=== PATIENT | female | born 1975 | race Caucasian/White ===

== ENCOUNTER → 2016-03-16 | Outpatient (REF) | payer OTHER ==
[~2016-03-16] MED LIST: MOTR200T40 PO; PREN27TA3 PO; TYLE325T5 PO; ZANTTAB9 PO
== END ==
LOC: M LAB REF 17:01
PROVIDERS: ATTEND Obstetrics & Gynecology
DX: Z12.4 Encounter for screening for malignant neoplasm of cervix (principal)

== ENCOUNTER → 2016-10-11 | Outpatient (REF) | payer OTHER ==
[~2016-10-11] MED LIST changes: +CALC600T57 PO; +FAMO20TA PO; +LEVE100SOL; +MACR100C43 PO; -MOTR200T40 PO; +MOTR200T44 PO; +POTA10CA PO; +VITA-193 PO; +VITA500055 PO
[2016-10-11 17:53] LABS: MEAN CORPUSCULAR HEMOGLOBIN 30.7 pg (27.0-33.0); MEAN CORPUSCULAR HGB CONC 33.4 g/dl (32.0-36.5); RED CELL DISTRIBUTION WIDTH 13.3 % (11.5-14.5); WHITE BLOOD COUNT 5.2 K/mm3 (4.0-10.0)
[2016-10-11 19:45] LABS: ALBUMIN 3.3 GM/DL (3.2-5.2); ALBUMIN/GLOBULIN RATIO 1.14 (1.00-1.93); ALKALINE PHOSPHATASE 62 U/L (45-117); ALT/SGPT 24 U/L (12-78); ANION GAP 11 MEQ/L (8-16); AST/SGOT 21 U/L (15-37); BILIRUBIN,TOTAL 1.1 MG/DL (0.2-1.0); BLOOD UREA NITROGEN 7 MG/DL (7-18); CARBON DIOXIDE LEVEL 26 MEQ/L (21-32); CHLORIDE LEVEL 108 MEQ/L (98-107); CREATININE FOR GFR 0.97 MG/DL (0.55-1.02); GLOMERULAR FILTRATION RATE > 60.0 (>58); GLUCOSE, FASTING 69 MG/DL (70-105); POTASSIUM SERUM 3.5 MEQ/L (3.5-5.1); SODIUM LEVEL 145 MEQ/L (136-145); TOTAL PROTEIN 6.2 GM/DL (6.4-8.2)
== END ==
LOC: M SFHCLERA 14:27
PROVIDERS: ATTEND Family Medicine
DX: R56.9 Unspecified convulsions (principal); Z13.1 Encounter for screening for diabetes mellitus

== ENCOUNTER 2016-10-17 17:24 | Emergency (ER) | payer OTHER ==
[~2016-10-17] VITALS: Ht 162.6 cm; Wt 84.1 kg
[~2016-10-17 17:24] MED LIST changes: -CALC600T57 PO; -FAMO20TA PO; -LEVE100SOL; -MACR100C43 PO; -POTA10CA PO; -VITA-193 PO; -VITA500055 PO
[2016-10-17] MEDS ORDERED: FAMO20TA PO (17:36)
[2016-10-17] MEDS ORDERED: LEVE100SOL (17:36)
[2016-10-17] MEDS ORDERED: VITA500055 PO (17:36)
[2016-10-17] MEDS ORDERED: VITA-193 PO (17:36)
[2016-10-17] MEDS ORDERED: CALC600T57 PO (17:36)
[2016-10-17] MEDS ORDERED: POTA10CA PO (17:36)
[2016-10-17] MEDS ORDERED: ACETAMINOPHEN 325 MG TAB PO ONE (18:45)
[2016-10-17] MEDS ORDERED: NS 1,000 ML IV ONE (18:45)
[2016-10-17 19:13] LABS: BASO % 0.3 % (0.0-1.0); EOS # 0.1 K/mm3 (0.0-0.50); EOS % 0.9 % (0.0-3.0); LARGE UNSTAINED CELL # 0.1 K/mm3 (0.0-0.4); LARGE UNSTAINED CELL % 1.3 % (0.0-4.0); LYMPH # 1.3 K/mm3 (1.5-4.5); LYMPH % 16.1 % (24.0-44.0); MEAN CORPUSCULAR HGB CONC 35.1 g/dl (32.0-36.5); MEAN CORPUSCULAR VOLUME 88.6 fl (80.0-96.0); MONO # 0.6 K/mm3 (0.0-0.8); MONO % 7.6 % (0.0-5.0); NEUTROPHILS # 5.4 K/mm3 (1.8-7.7); NEUTROPHILS % 73.8 % (36.0-66.0); PLATELET COUNT, AUTOMATED 162 k/mm3 (150-450); RED CELL DISTRIBUTION WIDTH 13.2 % (11.5-14.5); WHITE BLOOD COUNT 7.4 K/mm3 (4.0-10.0)
[2016-10-17 19:27] LABS: BLOOD UREA NITROGEN 8 MG/DL (7-18); CALCIUM LEVEL 8.7 MG/DL (8.5-10.1); CARBON DIOXIDE LEVEL 28 MEQ/L (21-32); CHLORIDE LEVEL 101 MEQ/L (98-107); GLOMERULAR FILTRATION RATE > 60.0 (>58); GLUCOSE, FASTING 85 MG/DL (70-105)
[2016-10-17 19:34] LABS: ANION GAP 7 MEQ/L (8-16); SODIUM LEVEL 136 MEQ/L (136-145)
[2016-10-17 19:50] LABS: POTASSIUM SERUM 2.9 MEQ/L (3.5-5.1)
[2016-10-17] MEDS ORDERED: POTASSIUM CHLORIDE 10 MEQ SR TABLET PO ONE (20:00)
[2016-10-17] MEDS ORDERED: KCL 10MEQ IN 100ML SWI (KRUN) 10 MEQ in APPROPRIATE DILUENT 1 EA IV ONE ×2 (20:00)
[2016-10-17 23:04] LABS: ANION GAP 9 MEQ/L (8-16); BLOOD UREA NITROGEN 7 MG/DL (7-18); CALCIUM LEVEL 6.6 MG/DL (8.5-10.1); CARBON DIOXIDE LEVEL 25 MEQ/L (21-32); CHLORIDE LEVEL 108 MEQ/L (98-107); CREATININE FOR GFR 0.81 MG/DL (0.55-1.02); GLOMERULAR FILTRATION RATE > 60.0 (>58); GLUCOSE, FASTING 80 MG/DL (70-105); POTASSIUM SERUM 3.4 MEQ/L (3.5-5.1); SODIUM LEVEL 142 MEQ/L (136-145)
[2016-10-17] MEDS ORDERED: NITROFURANTOIN (MACROBID) 100 MG CAP PO ONE (23:30)
[2016-10-17 23:32] VITALS: BP 114/65
[2016-10-17] MEDS ORDERED: MACR100C43 PO (23:35)
== END 2016-10-17 23:41 | disposition home or self-care (01) ==
LOC: M ED 17:24
DX: E87.6 Hypokalemia (principal); R51 Headache; M79.1 Myalgia; N39.0 Urinary tract infection, site not specified; E11.9 Type 2 diabetes mellitus without complications; I10 Essential (primary) hypertension; G40.909 Epilepsy, unspecified, not intractable, without status epilepticus; N27.0 Small kidney, unilateral; Z98.84 Bariatric surgery status; Z79.899 Other long term (current) drug therapy; Z88.8 Allergy status to other drugs, medicaments and biological substances; Z88.2 Allergy status to sulfonamides; Z88.1 Allergy status to other antibiotic agents; Z88.0 Allergy status to penicillin

== ENCOUNTER → 2016-10-24 | Outpatient (REF) | payer OTHER ==
[~2016-10-24] MED LIST changes: +CALC600T57 PO; +FAMO20TA PO; +LEVE100SOL; +MACR100C43 PO; +POTA10CA PO; +VITA-193 PO; +VITA500055 PO
[2016-10-24 18:01] LABS: POTASSIUM SERUM 3.5 MEQ/L (3.5-5.1)
== END ==
LOC: M SFHCLERA 11:26
PROVIDERS: ATTEND Family Medicine
DX: E55.9 Vitamin D deficiency, unspecified (principal); E87.6 Hypokalemia

== ENCOUNTER → 2016-11-09 | Outpatient (REF) | payer OTHER ==
[2016-11-09 15:56] LABS: ALBUMIN 3.6 GM/DL (3.2-5.2); ALKALINE PHOSPHATASE 70 U/L (45-117); ALT/SGPT 23 U/L (12-78); ANION GAP 9 MEQ/L (8-16); AST/SGOT 20 U/L (15-37); BILIRUBIN,TOTAL 1.4 MG/DL (0.2-1.0); BLOOD UREA NITROGEN 7 MG/DL (7-18); CALCIUM LEVEL 8.8 MG/DL (8.5-10.1); CARBON DIOXIDE LEVEL 28 MEQ/L (21-32); CHLORIDE LEVEL 105 MEQ/L (98-107); CREATININE FOR GFR 1.04 MG/DL (0.55-1.02); GLOMERULAR FILTRATION RATE > 60.0 (>58); GLUCOSE, FASTING 79 MG/DL (70-105); POTASSIUM SERUM 3.5 MEQ/L (3.5-5.1); SODIUM LEVEL 142 MEQ/L (136-145); TOTAL PROTEIN 6.6 GM/DL (6.4-8.2)
== END ==
LOC: M LABDRAW1 11:35
PROVIDERS: ATTEND Surgery
DX: K91.2 Postsurgical malabsorption, not elsewhere classified (principal)

== ENCOUNTER → 2017-04-03 | Outpatient (CLI) | payer MEDICAID, OTHER ==
[2017-04-03 13:47] LABS: BASO % 0.8 % (0.0-1.0); EOS # 0.1 10^3/uL (0.0-0.50); EOS % 2.1 % (0.0-3.0); HEMATOCRIT 42.7 % (36.0-47.0); HEMOGLOBIN 14.4 g/dl (12.0-16.0); IMMATURE GRANULOCYTE % 0.2 % (0-0); LYMPH # 1.9 10^3/uL (1.5-4.5); LYMPH % 40.8 % (24.0-44.0); MEAN CORPUSCULAR HEMOGLOBIN 29.9 pg (27.0-33.0); MEAN CORPUSCULAR HGB CONC 33.7 g/dl (32.0-36.5); MEAN CORPUSCULAR VOLUME 88.6 fl (80.0-96.0); MONO # 0.3 10^3/uL (0.0-0.8); MONO % 6.1 % (0.0-5.0); NEUTROPHILS # 2.4 10^3/uL (1.8-7.7); PLATELET COUNT, AUTOMATED 193 10^3/uL (150-450); RED BLOOD COUNT 4.82 10^6/uL (4.00-5.40); RED CELL DISTRIBUTION WIDTH 12.5 % (11.5-14.5); WHITE BLOOD COUNT 4.8 10^3/uL (4.0-10.0)
[2017-04-03 13:57] LABS: ESTIMATED AVERAGE GLUCOSE 91 MG/DL (60-110); HEMOGLOBIN A1c 4.8 %
[2017-04-03 14:02] LABS: HEMATOCRIT 42.7 % (36.0-47.0)
[2017-04-03 14:16] LABS: TOTAL 25(OH) VITAMIN D 13.7 NG/ML (30.0-100.0)
[2017-04-03 14:17] LABS: VITAMIN B12 LEVEL 293 PG/ML (247-911)
[2017-04-03 14:26] LABS: ALBUMIN 3.7 GM/DL (3.2-5.2); ALBUMIN/GLOBULIN RATIO 1.16 (1.00-1.93); ALKALINE PHOSPHATASE 86 U/L (45-117); ALT/SGPT 12 U/L (12-78); ANION GAP 8 MEQ/L (8-16); AST/SGOT 10 U/L (7-37); BILIRUBIN,TOTAL 1.1 MG/DL (0.2-1.0); BLOOD UREA NITROGEN 10 MG/DL (7-18); CALCIUM LEVEL 8.9 MG/DL (8.5-10.1); CARBON DIOXIDE LEVEL 25 MEQ/L (21-32); CHLORIDE LEVEL 106 MEQ/L (98-107); CREATININE FOR GFR 1.07 MG/DL (0.55-1.30); FERRITIN 15 NG/ML (8-252); GLOMERULAR FILTRATION RATE > 60.0 (>58); GLUCOSE, FASTING 79 MG/DL (70-100); IRON (FE) 80 UG/DL (50-170); MAGNESIUM LEVEL 1.9 MG/DL (1.8-2.4); PHOSPHORUS LEVEL 3.4 MG/DL (2.5-4.9); POTASSIUM SERUM 3.8 MEQ/L (3.5-5.1); SODIUM LEVEL 139 MEQ/L (136-145); TOTAL PROTEIN 6.9 GM/DL (6.4-8.2)
[2017-04-06 12:49] LABS: PRETREATED FOLATE FOR RBCFOL 5.5 NG/ML; RBC FOLATE 270.5 NG/ML (280-791)
== END ==
LOC: M LAB 12:59
DX: K91.2 Postsurgical malabsorption, not elsewhere classified (principal)
CPT/HCPCS: 83540

== ENCOUNTER → 2017-04-17 | Outpatient (CLI) | payer MEDICAID | LOC: M RAD 10:42 | DX: Z12.31 Encounter for screening mammogram for malignant neoplasm of breast (principal) ==

== ENCOUNTER → 2017-08-01 | Outpatient (REF) ==
[2017-08-03 12:00] LABS: RUBELLA IgG QUALITATIVE IMMUNE (IMMUNE)
== END ==
LOC: M LAB 13:53
DX: Z00.00 Encounter for general adult medical examination without abnormal findings (principal)

== ENCOUNTER 2017-08-23 21:31 | Emergency (ER) | payer OTHER, MEDICAID ==
[2017-08-23] MEDS: levETIRAcetam INJection 1,000 MG in D5W 100 ML IV (22:45)
[2017-08-23 22:48] LABS: BASO % 0.8 % (0.0-1.0); EOS # 0.1 10^3/uL (0.0-0.50); EOS % 1.8 % (0.0-3.0); HEMATOCRIT 37.1 % (36.0-47.0); HEMOGLOBIN 12.6 g/dl (12.0-15.5); LYMPH # 1.5 10^3/uL (1.5-4.5); LYMPH % 37.8 % (24.0-44.0); MEAN CORPUSCULAR HEMOGLOBIN 29.4 pg (27.0-33.0); MEAN CORPUSCULAR VOLUME 86.5 fl (80.0-96.0); MONO # 0.5 10^3/uL (0.0-0.8); MONO % 13.5 % (0.0-5.0); NEUTROPHILS # 1.8 10^3/uL (1.8-7.7); NEUTROPHILS % 46.1 % (36.0-66.0); PLATELET COUNT, AUTOMATED 176 10^3/uL (150-450); RED BLOOD COUNT 4.29 10^6/uL (4.00-5.40); RED CELL DISTRIBUTION WIDTH 12.6 % (11.5-14.5); WHITE BLOOD COUNT 3.9 10^3/uL (4.0-10.0)
[2017-08-23 23:08] LABS: ALBUMIN 3.4 GM/DL (3.2-5.2); ALBUMIN/GLOBULIN RATIO 1.06 (1.00-1.93); ALKALINE PHOSPHATASE 76 U/L (45-117); ALT/SGPT 12 U/L (12-78); ANION GAP 8 MEQ/L (8-16); AST/SGOT 9 U/L (7-37); BILIRUBIN,DIRECT 0.1 MG/DL (0.0-0.2); BILIRUBIN,TOTAL 0.5 MG/DL (0.2-1.0); BLOOD UREA NITROGEN 19 MG/DL (7-18); CALCIUM LEVEL 8.2 MG/DL (8.5-10.1); CARBON DIOXIDE LEVEL 26 MEQ/L (21-32); CHLORIDE LEVEL 109 MEQ/L (98-107); CREATININE FOR GFR 1.48 MG/DL (0.55-1.30); GLOMERULAR FILTRATION RATE 41.4 (>58); GLUCOSE, FASTING 93 MG/DL (70-100); LIPASE 197 U/L (73-393); SODIUM LEVEL 143 MEQ/L (136-145); TOTAL PROTEIN 6.6 GM/DL (6.4-8.2)
[2017-08-24] MEDS: NS 1,000 ML IV ×2 (00:04)
== END 2017-08-24 01:11 | disposition home or self-care (01) ==
LOC: M ED 08-24 01:11
DX: G40.909 Epilepsy, unspecified, not intractable, without status epilepticus (principal); E86.0 Dehydration; Z98.84 Bariatric surgery status; Z79.899 Other long term (current) drug therapy; Z88.6 Allergy status to analgesic agent; Z88.1 Allergy status to other antibiotic agents; Z88.0 Allergy status to penicillin; Z88.8 Allergy status to other drugs, medicaments and biological substances
CPT/HCPCS: J1953

== ENCOUNTER → 2017-10-11 | Outpatient (CLI) | payer OTHER ==
[2017-10-11 11:46] LABS: BASO % 0.8 % (0.0-1.0); EOS # 0.1 10^3/uL (0.0-0.50); EOS % 2.1 % (0.0-3.0); HEMOGLOBIN 13.8 g/dl (12.0-15.5); IMMATURE GRANULOCYTE % 0.3 % (0-3.0); LYMPH # 1.5 10^3/uL (1.5-4.5); LYMPH % 37.9 % (24.0-44.0); MEAN CORPUSCULAR HEMOGLOBIN 28.9 pg (27.0-33.0); MEAN CORPUSCULAR HGB CONC 32.9 g/dl (32.0-36.5); MEAN CORPUSCULAR VOLUME 87.9 fl (80.0-96.0); MONO # 0.3 10^3/uL (0.0-0.8); MONO % 8.5 % (0.0-5.0); NEUTROPHILS % 50.4 % (36.0-66.0); PLATELET COUNT, AUTOMATED 189 10^3/uL (150-450); RED BLOOD COUNT 4.78 10^6/uL (4.00-5.40); RED CELL DISTRIBUTION WIDTH 11.9 % (11.5-14.5); WHITE BLOOD COUNT 3.9 10^3/uL (4.0-10.0)
[2017-10-11 12:19] LABS: TOTAL 25(OH) VITAMIN D 14.8 NG/ML (30.0-100.0)
[2017-10-11 12:20] LABS: VITAMIN B12 LEVEL 232 PG/ML (247-911)
[2017-10-11 13:58] LABS: ESTIMATED AVERAGE GLUCOSE 85 MG/DL (60-110); HEMOGLOBIN A1c 4.6 %
[2017-10-11 14:31] LABS: ALBUMIN 3.5 GM/DL (3.2-5.2); ALBUMIN/GLOBULIN RATIO 1.06 (1.00-1.93); ALKALINE PHOSPHATASE 78 U/L (45-117); ALT/SGPT 15 U/L (12-78); ANION GAP 8 MEQ/L (8-16); AST/SGOT 7 U/L (7-37); BILIRUBIN,TOTAL 0.8 MG/DL (0.2-1.0); BLOOD UREA NITROGEN 10 MG/DL (7-18); CALCIUM LEVEL 8.6 MG/DL (8.5-10.1); CARBON DIOXIDE LEVEL 26 MEQ/L (21-32); CHLORIDE LEVEL 109 MEQ/L (98-107); CREATININE FOR GFR 1.33 MG/DL (0.55-1.30); FERRITIN 5 NG/ML (8-252); GLOMERULAR FILTRATION RATE 46.8 (>58); GLUCOSE, FASTING 76 MG/DL (70-100); IRON (FE) 68 UG/DL (50-170); MAGNESIUM LEVEL 2.1 MG/DL (1.8-2.4); POTASSIUM SERUM 4.2 MEQ/L (3.5-5.1); SODIUM LEVEL 143 MEQ/L (136-145); TOTAL IRON BINDING CAPACITY 426 UG/DL (250-450); TOTAL PROTEIN 6.8 GM/DL (6.4-8.2)
== END ==
LOC: M LAB 10:49
DX: K91.2 Postsurgical malabsorption, not elsewhere classified (principal)
CPT/HCPCS: 83550

== ENCOUNTER → 2017-12-11 | Outpatient (REF) | payer OTHER | LOC: M SFHCLERA 09:50 | DX: E61.1 Iron deficiency (principal); Z98.84 Bariatric surgery status ==

== ENCOUNTER → 2017-12-12 | Outpatient (REF) | payer OTHER ==
[2017-12-12 11:57] LABS: HEMATOCRIT 41.3 % (36.0-47.0); HEMOGLOBIN 13.3 g/dl (12.0-15.5); MEAN CORPUSCULAR HEMOGLOBIN 28.5 pg (27.0-33.0); MEAN CORPUSCULAR HGB CONC 32.2 g/dl (32.0-36.5); MEAN CORPUSCULAR VOLUME 88.4 fl (80.0-96.0); PLATELET COUNT, AUTOMATED 202 10^3/uL (150-450); RED BLOOD COUNT 4.67 10^6/uL (4.00-5.40); RED CELL DISTRIBUTION WIDTH 12.6 % (11.5-14.5); WHITE BLOOD COUNT 3.7 10^3/uL (4.0-10.0)
[2017-12-12 12:23] LABS: ANION GAP 6 MEQ/L (8-16); BLOOD UREA NITROGEN 10 MG/DL (7-18); CALCIUM LEVEL 8.6 MG/DL (8.5-10.1); CARBON DIOXIDE LEVEL 29 MEQ/L (21-32); CHLORIDE LEVEL 108 MEQ/L (98-107); CREATININE FOR GFR 1.24 MG/DL (0.55-1.30); FERRITIN 7 NG/ML (8-252); GLOMERULAR FILTRATION RATE 50.7 (>58); GLUCOSE, FASTING 82 MG/DL (70-100); IRON (FE) 48 UG/DL (50-170); MAGNESIUM LEVEL 2.1 MG/DL (1.8-2.4); PERCENT SATURATION 12.1 % (13.2-45.0); POTASSIUM SERUM 4.4 MEQ/L (3.5-5.1); SODIUM LEVEL 143 MEQ/L (136-145); TOTAL IRON BINDING CAPACITY 396 UG/DL (250-450)
== END ==
LOC: M SFHCLERA 09:16
DX: E61.1 Iron deficiency (principal); Z98.84 Bariatric surgery status

== ENCOUNTER → 2018-01-30 | Outpatient (CLI) | payer OTHER ==
[2018-01-30 12:04] LABS: BASO % 0.8 % (0.0-1.0); EOS # 0.1 10^3/uL (0.0-0.50); EOS % 2.3 % (0.0-3.0); HEMATOCRIT 39.4 % (36.0-47.0); HEMOGLOBIN 12.8 g/dl (12.0-15.5); IMMATURE GRANULOCYTE % 0.8 % (0-3.0); LYMPH # 1.7 10^3/uL (1.5-4.5); LYMPH % 35.6 % (24.0-44.0); MEAN CORPUSCULAR HEMOGLOBIN 28.4 pg (27.0-33.0); MEAN CORPUSCULAR HGB CONC 32.5 g/dl (32.0-36.5); MEAN CORPUSCULAR VOLUME 87.4 fl (80.0-96.0); MONO # 0.5 10^3/uL (0.0-0.8); MONO % 11.2 % (0.0-5.0); NEUTROPHILS # 2.3 10^3/uL (1.8-7.7); NEUTROPHILS % 49.3 % (36.0-66.0); PLATELET COUNT, AUTOMATED 177 10^3/uL (150-450); RED BLOOD COUNT 4.51 10^6/uL (4.00-5.40); RED CELL DISTRIBUTION WIDTH 12.2 % (11.5-14.5); WHITE BLOOD COUNT 4.8 10^3/uL (4.0-10.0)
[2018-01-30 12:27] LABS: ANION GAP 7 MEQ/L (8-16); BLOOD UREA NITROGEN 12 MG/DL (7-18); CALCIUM LEVEL 8.3 MG/DL (8.5-10.1); CARBON DIOXIDE LEVEL 25 MEQ/L (21-32); CHLORIDE LEVEL 109 MEQ/L (98-107); CREATININE FOR GFR 1.21 MG/DL (0.55-1.30); GLOMERULAR FILTRATION RATE 52.2 (>58); GLUCOSE, FASTING 88 MG/DL (70-100); POTASSIUM SERUM 4.1 MEQ/L (3.5-5.1); SODIUM LEVEL 141 MEQ/L (136-145)
== END ==
LOC: M LAB 11:17
DX: M79.3 Panniculitis, unspecified (principal)
CPT/HCPCS: 80048

== ENCOUNTER 2018-01-31 21:49 | Emergency (ER) | payer OTHER ==
[2018-01-31] MEDS: PHENYTOIN INJection 1,000 MG in NS 100 ML IV (22:15)
[2018-01-31 22:47] LABS: HEMATOCRIT 37.3 % (36.0-47.0); HEMOGLOBIN 12.1 g/dl (12.0-15.5); MEAN CORPUSCULAR HEMOGLOBIN 28.3 pg (27.0-33.0); MEAN CORPUSCULAR HGB CONC 32.4 g/dl (32.0-36.5); MEAN CORPUSCULAR VOLUME 87.4 fl (80.0-96.0); PLATELET COUNT, AUTOMATED 186 10^3/uL (150-450); RED BLOOD COUNT 4.27 10^6/uL (4.00-5.40); RED CELL DISTRIBUTION WIDTH 12.3 % (11.5-14.5); WHITE BLOOD COUNT 6.7 10^3/uL (4.0-10.0)
[2018-01-31 23:07] LABS: ANION GAP 8 MEQ/L (8-16); BLOOD UREA NITROGEN 13 MG/DL (7-18); CALCIUM LEVEL 8.1 MG/DL (8.5-10.1); CARBON DIOXIDE LEVEL 27 MEQ/L (21-32); CHLORIDE LEVEL 109 MEQ/L (98-107); CREATININE FOR GFR 1.31 MG/DL (0.55-1.30); GLOMERULAR FILTRATION RATE 47.6 (>58); GLUCOSE, FASTING 96 MG/DL (70-100); POTASSIUM SERUM 4.1 MEQ/L (3.5-5.1); SODIUM LEVEL 144 MEQ/L (136-145)
== END 2018-01-31 23:58 | disposition home or self-care (01) ==
LOC: M ED 23:58
DX: G40.909 Epilepsy, unspecified, not intractable, without status epilepticus (principal); N18.3 Chronic kidney disease, stage 3 (moderate); Z98.84 Bariatric surgery status; Z79.899 Other long term (current) drug therapy; Z88.0 Allergy status to penicillin; Z88.1 Allergy status to other antibiotic agents; Z88.2 Allergy status to sulfonamides; Z88.8 Allergy status to other drugs, medicaments and biological substances
CPT/HCPCS: J1165

== ENCOUNTER → 2018-02-04 | Outpatient (REF) | payer OTHER | LOC: M LAB REF 12:57 | DX: N39.0 Urinary tract infection, site not specified (principal) | CPT/HCPCS: 87086 ==

== ENCOUNTER → 2018-02-07 | Outpatient (REF) | payer OTHER | LOC: M LAB REF 13:21 | DX: N39.0 Urinary tract infection, site not specified (principal) ==

== ENCOUNTER 2018-02-13 17:51 | Emergency (ER) | payer OTHER | END 2018-02-13 21:52 | disposition home or self-care (01) | LOC: M ED 17:51 | DX: Z48.817 Encounter for surgical aftercare following surgery on the skin and subcutaneous tissue (principal); G40.909 Epilepsy, unspecified, not intractable, without status epilepticus; Z79.899 Other long term (current) drug therapy; Z88.0 Allergy status to penicillin; Z88.1 Allergy status to other antibiotic agents; Z88.2 Allergy status to sulfonamides; Z88.8 Allergy status to other drugs, medicaments and biological substances | CPT/HCPCS: 74176 ==

== ENCOUNTER → 2018-03-13 | Outpatient (REF) | payer OTHER ==
[~2018-03-13] MED LIST changes: +APTI1TAB4; +HYDR-3713 PO; +IRON65TA; +KEPP1SOL PO; +KLOR10TA76 PO; +PHEN300C PO; -POTA10CA PO
[2018-03-13 20:19] LABS: BASO % 0.8 % (0.0-1.0); EOS # 0.4 10^3/uL (0.0-0.50); EOS % 8.7 % (0.0-3.0); HEMATOCRIT 38.4 % (36.0-47.0); HEMOGLOBIN 12.3 g/dl (12.0-15.5); LYMPH # 1.8 10^3/uL (1.5-4.5); LYMPH % 38.2 % (24.0-44.0); MEAN CORPUSCULAR HEMOGLOBIN 28.2 pg (27.0-33.0); MEAN CORPUSCULAR VOLUME 88.1 fl (80.0-96.0); MONO # 0.4 10^3/uL (0.0-0.8); MONO % 7.7 % (0.0-5.0); NEUTROPHILS # 2.1 10^3/uL (1.8-7.7); NEUTROPHILS % 44.4 % (36.0-66.0); PLATELET COUNT, AUTOMATED 182 10^3/uL (150-450); RED BLOOD COUNT 4.36 10^6/uL (4.00-5.40); WHITE BLOOD COUNT 4.8 10^3/uL (4.0-10.0)
[2018-03-13 20:22] LABS: ALBUMIN 3.5 GM/DL (3.2-5.2); BILIRUBIN,TOTAL 0.3 MG/DL (0.2-1.0); CALCIUM LEVEL 8.4 MG/DL (8.5-10.1); CREATININE FOR GFR 1.16 MG/DL (0.55-1.30); GLOMERULAR FILTRATION RATE 54.8 (>58); PHENYTOIN (DILANTIN) 1.9 UG/ML (10.0-20.0); POTASSIUM SERUM 4.4 MEQ/L (3.5-5.1); TOTAL PROTEIN 6.6 GM/DL (6.4-8.2)
[2018-03-13 20:31] LABS: TOTAL 25(OH) VITAMIN D 10.5 NG/ML (30.0-100.0)
== END ==
LOC: M SFHCLERA 14:51
PROVIDERS: ATTEND Family Medicine
DX: R56.9 Unspecified convulsions (principal)

== ENCOUNTER → 2018-04-09 | Outpatient (REF) | payer OTHER ==
[2018-04-13 00:06] LABS: HPV HYBRID CAPTURE II Negative (Negative)
== END ==
LOC: M LAB REF 09:17
PROVIDERS: ATTEND Obstetrics & Gynecology
DX: Z12.4 Encounter for screening for malignant neoplasm of cervix (principal); Z11.51 Encounter for screening for human papillomavirus (HPV)

== ENCOUNTER → 2018-04-19 | Outpatient (CLI) | payer OTHER ==
--- NOTE | 2018-04-19 11:48 | REP ---
Pelvic ultrasound including transabdominal, endovaginal and Doppler ultrasound assessment for excessive/frequent administration. The bladder is adequately distended. The uterus is anteverted and upper normal size measuring 9.2 x 4.9 x 6.5 cm. The myometrium is slightly heterogeneous but otherwise unremarkable. The endometrium is not thickened measuring up to 13 mm. The right ovary measures 3.0 x 2.3 x 2.5 cm and is normal size. There is a right ovarian hemorrhagic follicle measuring 1.2 x 0.8 x 1.4 cm. The left ovary measures 3.5 x 2.8 x 2.9 cm and is normal size. There is a left ovarian cyst measuring 2.6 x 1.6 x 2.6 cm containing a daughter cyst. There is vascular flow in both ovaries. The Doppler resistive index of the parenchymal arteries in the right ovary is 0.49 and left ovary 0.45. Impression: Slightly heterogeneous myometrium. The endometrium is not thickened. Right ovarian hemorrhagic follicle. Left ovarian cyst containing a daughter cyst. No free fluid in the pelvis. Electronically Signed by Nehemias Montiel MD 04/19/2018 11:40 A
== END ==
LOC: M RAD 09:36
PROVIDERS: ATTEND Obstetrics & Gynecology
DX: N92.1 Excessive and frequent menstruation with irregular cycle (principal); N83.202 Unspecified ovarian cyst, left side; N83.01 Follicular cyst of right ovary

== ENCOUNTER → 2018-04-19 | Outpatient (CLI) | payer OTHER ==
--- NOTE | 2018-04-19 11:25 | REPMRS ---
Patient History The patient states she had a clinical breast exam in 2018. Family history of breast cancer at age 60 in mother, ovarian cancer at age 35 in maternal aunt. Patient has lost 125lbs. due to gastric bypass surgery 3D TOMOSYNTHESIS WAS PERFORMED. Digital Mammo Screening Bilat: April 19, 2018 - Exam #: [id number] Bilateral CC and MLO view(s) were taken. Technologist: Crystal Penny Technologist Prior study comparison: January 11, 2017, bilateral digital mammo screening bilat performed at [facility]. March 20, 2016, digital bilateral screening mammo, performed at [facility]. FINDINGS: The breast tissue is heterogeneously dense. This may lower the sensitivity of mammography. There has been no change in the appearance of the mammogram from the prior studies. There is a moderate amount of residual fibroglandular tissue which is fairly symmetric. There is no interval development of dominant mass, areas of architectural distortion, or clustered microcalcification typical of malignancy. Assessment: BI-RADS/ACR category 1 mammogram. Negative Mammogram. Recommendation Routine screening mammogram in 1 year (for women over age 40). This mammogram was interpreted with the aid of an FDA-approved computer-aided dectection system. Electronically Signed By: Nehemias Hernandez MD 04/19/18 [id number]
== END ==
LOC: M RAD 09:40
PROVIDERS: ATTEND Family Medicine
DX: Z12.31 Encounter for screening mammogram for malignant neoplasm of breast (principal); Z80.41 Family history of malignant neoplasm of ovary; Z98.84 Bariatric surgery status

== ENCOUNTER → 2018-05-02 | Outpatient (CLI) | payer OTHER | LOC: M SMT 13:39 | PROVIDERS: ATTEND Advanced Practice Midwife | DX: Z31.438 Encounter for other genetic testing of female for procreative management (principal) ==

== ENCOUNTER 2018-05-20 00:05 | Emergency (ER) | payer OTHER ==
[~2018-05-20] VITALS: Ht 162.6 cm; Wt 59.0 kg
[2018-05-20] MEDS ORDERED: NS 1,000 ML IV ONE (00:30)
[2018-05-20 00:59] LABS: BASO % 0.6 % (0.0-1.0); EOS # 0.1 10^3/uL (0.0-0.50); EOS % 1.4 % (0.0-3.0); HEMATOCRIT 39.9 % (36.0-47.0); HEMOGLOBIN 12.4 g/dl (12.0-15.5); LYMPH # 2.5 10^3/uL (1.5-4.5); LYMPH % 38.1 % (24.0-44.0); MEAN CORPUSCULAR HEMOGLOBIN 26.6 pg (27.0-33.0); MEAN CORPUSCULAR HGB CONC 31.1 g/dl (32.0-36.5); MEAN CORPUSCULAR VOLUME 85.4 fl (80.0-96.0); MONO # 0.5 10^3/uL (0.0-0.8); MONO % 7.9 % (0.0-5.0); NEUTROPHILS # 3.4 10^3/uL (1.8-7.7); NEUTROPHILS % 51.8 % (36.0-66.0); PLATELET COUNT, AUTOMATED 155 10^3/uL (150-450); RED BLOOD COUNT 4.67 10^6/uL (4.00-5.40); WHITE BLOOD COUNT 6.6 10^3/uL (4.0-10.0)
[2018-05-20 01:16] LABS: HCG, SERUM QUALITATIVE NEGATIVE (NEGATIVE)
--- NOTE | 2018-05-20 01:30 | REPVR ---
EXAM: CT Head Without Contrast EXAM DATE/TIME: 05/20/2018 12:46 AM CLINICAL HISTORY: 42 years old, female; Pain; Additional info: Altered mental status TECHNIQUE: Axial computed tomography images of the head/brain without contrast. All CT scans at this facility use at least one of these dose optimization techniques: automated exposure control; mA and/or kV adjustment per patient size (includes targeted exams where dose is matched to clinical indication); or iterative reconstruction. COMPARISON: Thyroid, ST head+neck US 01/09/2013 2:04 PM FINDINGS: Brain: Normal. No hemorrhage. No significant white matter disease. No edema. Ventricles: Normal. No ventriculomegaly. Bones/joints: Unremarkable. No acute fracture. Sinuses: Visualized sinuses are unremarkable. No acute sinusitis. Mastoid air cells: Visualized mastoid air cells are unremarkable. No mastoid effusion. Soft tissues: Unremarkable. IMPRESSION: No acute intracranial abnormality. Electronically signed by: Libby Choi On 05/20/2018 01:29:35 AM
[2018-05-20 01:38] LABS: ACETAMINOPHEN LEVEL < 2.0 UG/ML (10.0-30.0); ALBUMIN 3.9 GM/DL (3.2-5.2); ALT/SGPT 18 U/L (12-78); BILIRUBIN,DIRECT 0.2 MG/DL (0.0-0.2); BILIRUBIN,TOTAL 0.6 MG/DL (0.2-1.0); BLOOD UREA NITROGEN 14 MG/DL (7-18); CALCIUM LEVEL 8.3 MG/DL (8.5-10.1); CARBON DIOXIDE LEVEL 26 MEQ/L (21-32); CHLORIDE LEVEL 106 MEQ/L (98-107); CK-MB VALUE MASS < 1.0 NG/ML (<3.6); CPK CREATINE PHOSPHOKINASE 56 U/L (26-192); CREATININE FOR GFR 1.13 MG/DL (0.55-1.30); ETHYL ALCOHOL (ETHANOL) < 0.003 % (0.000-0.010); GLOMERULAR FILTRATION RATE 56.5 (>58); GLUCOSE, FASTING 88 MG/DL (70-100); MB/CK RELATIVE INDEX 1.79 (< OR =4); PHENYTOIN (DILANTIN) 18.6 UG/ML (10.0-20.0); SALICYLATE LEVEL < 1.7 MG/DL (5.0-30.0); SODIUM LEVEL 139 MEQ/L (136-145); TOTAL PROTEIN 7.1 GM/DL (6.4-8.2); TROPONIN I < 0.02 NG/ML (< 0.10)
[2018-05-20 02:39] VITALS: BP 113/67
--- NOTE | 2018-05-20 06:35 | ECGEPIP ---
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
== END 2018-05-20 02:49 | disposition home or self-care (01) ==
LOC: M ED 00:05
DX: G40.909 Epilepsy, unspecified, not intractable, without status epilepticus (principal); Q07.00 Arnold-Chiari syndrome without spina bifida or hydrocephalus; Z79.899 Other long term (current) drug therapy; Z88.8 Allergy status to other drugs, medicaments and biological substances; Z88.1 Allergy status to other antibiotic agents; Z88.0 Allergy status to penicillin
CPT/HCPCS: 70450; 80048; 80076; 80185; 81001; 82550; 82553; 84443; 84703; 85025; 87086; 93005; 93041; 94760; 96360; 96361; 99285; G0480

== ENCOUNTER → 2018-08-12 | Outpatient (REF) | payer OTHER | LOC: M SFHCLERA 12:15 | PROVIDERS: ATTEND Family Medicine | DX: E55.9 Vitamin D deficiency, unspecified (principal) ==

== ENCOUNTER → 2019-01-08 | Outpatient (REF) | payer OTHER ==
[~2019-01-08] MED LIST changes: +CYAN500T9 PO; -VITA-193 PO
[2019-01-08 20:28] LABS: BASO # 0.1 10^3/uL (0.0-0.2); BASO % 0.9 % (0.0-1.0); EOS # 0.2 10^3/uL (0.0-0.5); EOS % 3.1 % (0.0-3.0); HEMATOCRIT 40.3 % (36.0-47.0); HEMOGLOBIN 11.9 g/dl (12.0-15.5); LYMPH # 1.9 10^3/uL (1.5-5.0); LYMPH % 29.3 % (24.0-44.0); MEAN CORPUSCULAR HEMOGLOBIN 25.5 pg (27.0-33.0); MEAN CORPUSCULAR HGB CONC 29.5 g/dl (32.0-36.5); MEAN CORPUSCULAR VOLUME 86.5 fl (80.0-96.0); MONO # 0.5 10^3/uL (0.0-0.8); MONO % 8.1 % (0.0-5.0); NEUTROPHILS # 3.8 10^3/uL (1.5-8.5); NEUTROPHILS % 58.3 % (36.0-66.0); PLATELET COUNT, AUTOMATED 239 10^3/uL (150-450); RED BLOOD COUNT 4.66 10^6/uL (4.00-5.40); WHITE BLOOD COUNT 6.4 10^3/uL (4.0-10.0)
[2019-01-08 20:47] LABS: ALBUMIN 3.5 GM/DL (3.2-5.2); BILIRUBIN,TOTAL 0.4 MG/DL (0.2-1.0); CALCIUM LEVEL 8.8 MG/DL (8.5-10.1); CREATININE FOR GFR 1.13 MG/DL (0.55-1.30); FOLATE 7.8 NG/ML; GLOMERULAR FILTRATION RATE 56.2 (>58); PERCENT SATURATION 5.5 % (13.2-45.0); PHENYTOIN (DILANTIN) 0.5 UG/ML (10.0-20.0); POTASSIUM SERUM 4.1 MEQ/L (3.5-5.1); TOTAL 25(OH) VITAMIN D 11.8 NG/ML (30.0-100.0); TOTAL PROTEIN 6.6 GM/DL (6.4-8.2)
[2019-01-08 20:59] LABS: HEMATOCRIT 40.9 % (36.0-47.0)
== END ==
LOC: M SFHCLERA 15:03
PROVIDERS: ATTEND Family Medicine
DX: Z98.84 Bariatric surgery status (principal); R56.9 Unspecified convulsions

== ENCOUNTER → 2019-05-08 | Outpatient (REF) | payer OTHER ==
[2019-05-08 17:00] LABS: PERCENT SATURATION 6.6 % (13.2-45.0)
[2019-05-08 17:08] LABS: TOTAL 25(OH) VITAMIN D 14.1 NG/ML (30.0-100.0)
== END ==
LOC: M SFHCLERA 13:37
PROVIDERS: ATTEND Family Medicine
DX: E61.1 Iron deficiency (principal); E55.9 Vitamin D deficiency, unspecified

== ENCOUNTER 2019-05-30 09:30 | Outpatient (CLI) | payer OTHER ==
[~2019-05-30] VITALS: Ht 165.1 cm; Wt 68.6 kg
[2019-05-30 09:50] VITALS: BP 119/62
[2019-05-30] MEDS ORDERED: VITA30004 PO (10:04)
[2019-05-30] MEDS ORDERED: IRON SUCROSE 100 MG in NS 100 ML OVER 1 HR IV ONE (10:15)
[2019-05-30 11:33] VITALS: BP 111/70
== END 2019-05-30 11:50 | disposition home or self-care (01) ==
LOC: M INFU 09:30
PROVIDERS: ATTEND Family Medicine
DX: D50.9 Iron deficiency anemia, unspecified (principal); Z88.0 Allergy status to penicillin; Z88.2 Allergy status to sulfonamides; Z88.6 Allergy status to analgesic agent
CPT/HCPCS: 96365; J1756

== ENCOUNTER 2019-06-06 10:14 | Outpatient (CLI) | payer OTHER ==
[~2019-06-06] VITALS: Ht 165.1 cm; Wt 68.6 kg
[~2019-06-06 10:14] MED LIST changes: +VITA30004 PO
[2019-06-06 10:20] VITALS: BP 115/60
[2019-06-06 11:15] VITALS: BP 117/57
[2019-06-06] MEDS ORDERED: IRON SUCROSE 100 MG in NS 100 ML OVER 1 HR IV ONE (11:30)
[2019-06-06 12:02] VITALS: BP 111/77
== END 2019-06-06 12:05 | disposition home or self-care (01) ==
LOC: M INFU 10:14
PROVIDERS: ATTEND Family Medicine
DX: D50.9 Iron deficiency anemia, unspecified (principal); Z88.0 Allergy status to penicillin; Z88.1 Allergy status to other antibiotic agents; Z88.2 Allergy status to sulfonamides; Z88.8 Allergy status to other drugs, medicaments and biological substances
CPT/HCPCS: 96365; J1756

== ENCOUNTER 2019-06-13 09:48 | Outpatient (CLI) | payer OTHER ==
[~2019-06-13] VITALS: Ht 165.1 cm; Wt 151.2 kg
[2019-06-13] MEDS ORDERED: IRON SUCROSE 100 MG in NS 100 ML OVER 1 HR IV ONE (11:00)
[2019-06-13 11:04] VITALS: BP 120/53
[2019-06-13 11:25] VITALS: BP 124/56
== END 2019-06-13 11:25 | disposition home or self-care (01) ==
LOC: M INFU 09:48
PROVIDERS: ATTEND Family Medicine
DX: D50.9 Iron deficiency anemia, unspecified (principal)
CPT/HCPCS: 96365; J1756

== ENCOUNTER → 2019-06-24 | Outpatient (REF) | payer OTHER ==
[2019-06-24 17:23] LABS: HEMATOCRIT 39.5 % (36.0-47.0); HEMOGLOBIN 12.3 g/dl (12.0-15.5); MEAN CORPUSCULAR HEMOGLOBIN 26.3 pg (27.0-33.0); MEAN CORPUSCULAR HGB CONC 31.1 g/dl (32.0-36.5); MEAN CORPUSCULAR VOLUME 84.6 fl (80.0-96.0); PLATELET COUNT, AUTOMATED 227 10^3/uL (150-450); RED BLOOD COUNT 4.67 10^6/uL (4.00-5.40); WHITE BLOOD COUNT 4.4 10^3/uL (4.0-10.0)
[2019-06-24 17:53] LABS: FREE T4 1.22 NG/DL (0.76-1.46); THYROID STIMULATING HORMONE 1.5 uIU/ML (0.358-3.740)
== END ==
LOC: M PLALAB 14:46
PROVIDERS: ATTEND Obstetrics & Gynecology
DX: N93.9 Abnormal uterine and vaginal bleeding, unspecified (principal)

== ENCOUNTER → 2019-07-08 | Outpatient (CLI) | payer OTHER ==
--- NOTE | 2019-07-09 04:38 | REP ---
Clinical: Abnormal uterine bleeding . Technique: Transabdominal pelvic ultrasound followed by transvaginal examination for better evaluation of the endometrium and adnexa with color Doppler evaluation of the ovaries. Findings: Bladder is under distended. Heterogeneous anteverted uterus measures 10.0 x 4.6 x 6.3 cm . The endometrial complex measures 8 mm thickness and includes a 13 x 8 x 12 mm hyperechoic focus suggesting polyp. No discrete uterine or endometrial abnormalities are appreciated. Bilateral ovaries are normal in appearance and vascularity without evidence for torsion. Right ovary measures 2.8 x 2.1 x 2.1 cm; R I = 0.63 . Left ovary measures 3.8 x 3.1 x 2.0 centimeters ; R I = 0.52. Normal bilateral follicles noted. No pelvic fluid or adnexal mass lesion . Impression: 1. Possible 13 mm endometrial polyp.
== END ==
LOC: M PLAIMG 13:44
PROVIDERS: ATTEND Obstetrics & Gynecology
DX: R93.89 Abnormal findings on diagnostic imaging of other specified body structures (principal); N93.9 Abnormal uterine and vaginal bleeding, unspecified

== ENCOUNTER → 2019-07-25 | Outpatient (CLI) | payer OTHER | LOC: M LAB 10:50 | PROVIDERS: ATTEND Nurse Practitioner Family | DX: E55.9 Vitamin D deficiency, unspecified (principal) ==

== ENCOUNTER → 2019-08-06 | Outpatient (REF) | payer OTHER | LOC: M SFHCWAGY 08:19 | PROVIDERS: ATTEND Obstetrics & Gynecology | DX: N93.9 Abnormal uterine and vaginal bleeding, unspecified (principal) ==

== ENCOUNTER → 2019-08-18 | Outpatient (REF) | payer OTHER ==
[2019-08-18 16:30] LABS: ALBUMIN 3.6 GM/DL (3.2-5.2); BILIRUBIN,TOTAL 0.6 MG/DL (0.2-1.0); CALCIUM LEVEL 8.6 MG/DL (8.5-10.1); CREATININE FOR GFR 1.12 MG/DL (0.55-1.30); GLOMERULAR FILTRATION RATE 56.8 (>58); PHENYTOIN (DILANTIN) 0.5 UG/ML (10.0-20.0); POTASSIUM SERUM 4.6 MEQ/L (3.5-5.1); TOTAL PROTEIN 6.6 GM/DL (6.4-8.2)
[2019-08-18 16:50] LABS: BASO % 0.5 % (0.0-1.0); EOS # 0.1 10^3/uL (0.0-0.5); EOS % 2.2 % (0.0-3.0); HEMATOCRIT 40.1 % (36.0-47.0); HEMOGLOBIN 12.4 g/dl (12.0-15.5); LYMPH # 1.5 10^3/uL (1.5-5.0); LYMPH % 24.5 % (24.0-44.0); MEAN CORPUSCULAR HEMOGLOBIN 27.3 pg (27.0-33.0); MEAN CORPUSCULAR HGB CONC 30.9 g/dl (32.0-36.5); MEAN CORPUSCULAR VOLUME 88.1 fl (80.0-96.0); MONO # 0.7 10^3/uL (0.0-0.8); MONO % 11.4 % (0.0-5.0); NEUTROPHILS # 3.7 10^3/uL (1.5-8.5); NEUTROPHILS % 61.1 % (36.0-66.0); PLATELET COUNT, AUTOMATED 204 10^3/uL (150-450); RED BLOOD COUNT 4.55 10^6/uL (4.00-5.40)
== END ==
LOC: M SFHCLERA 13:58
PROVIDERS: ATTEND Family Medicine
DX: G40.909 Epilepsy, unspecified, not intractable, without status epilepticus (principal)

== ENCOUNTER → 2019-08-22 | Outpatient (CLI) | payer OTHER ==
[~2019-08-22] MED LIST changes: -CYAN500T9 PO; +VITA500T37 PO
== END ==
LOC: M LABSMTC 09:37
PROVIDERS: ATTEND Anesthesiology
DX: Z03.818 Encounter for observation for suspected exposure to other biological agents ruled out (principal); Z11.59 Encounter for screening for other viral diseases
CPT/HCPCS: C9803; U0003

== ENCOUNTER 2019-08-25 07:59 | Day surgery (SDC) | payer OTHER ==
[~2019-08-25] VITALS: Ht 162.6 cm; Wt 66.9 kg
[~2019-08-25 07:59] MED LIST changes: +LR 1,000 ML IV ONE; +UNRESOLVED CLARIFICATION ENTRY XX SCH; +metroNIDAZOLE 500 MG in IV 1 EA IV ONE
[2019-08-25] MEDS ORDERED: CLINDAMYCIN 900 MG in IV 1 EA IV ONE (09:15)
[2019-08-25] MEDS ORDERED: AZTREONAM 2 GM in D5W MINI-BAG PLUS 50 ML IV SCH (09:15)
[2019-08-25] MEDS ORDERED: ONDANSETRON 4MG/2ML VIAL As Ordered ONE (09:27)
[2019-08-25] MEDS ORDERED: LIDOCAINE 2% 100MG/5ML SDV (FOR ANES.) As Ordered ONE (09:27)
[2019-08-25] MEDS ORDERED: KETOROLAC 60MG 2ML VIAL As Ordered ONE (09:27)
[2019-08-25] MEDS ORDERED: ROCURONIUM BROMIDE 50 MG/5 ML VIAL As Ordered ONE ×2 (09:27→11:34)
[2019-08-25] MEDS ORDERED: propofoL 200 MG/20 ML VIAL As Ordered ONE (09:27)
[2019-08-25] MEDS ORDERED: fentaNYL 250 MCG/5 ML INJECTION (J3010) As Ordered ONE (09:27)
[2019-08-25] MEDS ORDERED: dexameTHASONE 4 MG/ML 1ML VIAL (J1100 PER 1MG) As Ordered ONE (09:27)
[2019-08-25] MEDS ORDERED: MIDAZOLAM INJ 2MG/2ML VIAL (J2250 PER 1MG) As Ordered ONE (09:28)
[2019-08-25] MEDS ORDERED: AZTREONAM 2 GM in D5W MINI-BAG PLUS 50 ML IV ONE (09:40)
[2019-08-25] MEDS ORDERED: BUPIVACAINE HCL 0.25% 30ML VIAL As Ordered ONE (10:16)
--- NOTE | 2019-08-25 10:58 | ROOPDOC ---
[facility] Report Of Operation Report of Operation DATE OF PROCEDURE: 08/25/19 PREPROCEDURE DIAGNOSES: 1. Abnormal uterine bleeding. POSTPROCEDURE DIAGNOSES: 1. Abnormal uterine bleeding. PROCEDURES PERFORMED: 1. Robotic-assisted laparoscopic hysterectomy. 2. Bilateral salpingectomy. 3. Cystoscopy. SURGEON: Norma Canales MD ADMINISTRATION INTERN: MARIAN Rolle ANESTHESIA: General endotracheal anesthesia. ESTIMATED BLOOD LOSS: 150 mL. INTRAVENOUS FLUIDS: 1200 mL lactated Ringer solution. URINE OUTPUT: 300 mL. PREPROCEDURE ANTIBIOTICS: 900 mg of clindamycin and 2 g of Azactam OPERATIVE FINDINGS: The patient with normal-appearing bilateral adnexa, uterus fibroid uertus. CYSTSCOPIC FINDING: Normal bladder mucosa, no foreign objects. Bilateral ureteral jets were observed. SPECIMEN: Uterus, cervix, bilateral fallopian tubes DESCRIPTION OF PROCEDURE: After informed consent was obtained and written consent was reviewed, the patient was brought to the operating room, where general endotracheal anesthesia was obtained. She was then placed in lithotomy position, was prepped and draped in a normal sterile fashion. A time-out in the operating room was then performed, identifying the patient, procedure to be performed, as well as drug allergies. A speculum was then placed, revealing the cervix. The anterior and posterior aspects of the cervix were stitched with a 0 Vicryl. The uterus was then sounded to 9cm. A extra large VCare uterine manipulator was then advanced through the cervical os for means to manipulate the uterus. The cervical cap was applied over the cervix, as well as the vaginal sleeve applied into the vagina. The speculum was removed from the patients vagina. A Lucas catheter was then placed and set to gravity. Gloves were changed, and attention was turned to the patients abdomen, where a Veress needle was placed through the umbilicus. A pneumoperitoneum was then obtained with CO2 gas. The supraumbilical area was infused with 0.25% Marcaine. An incision was made in this area, and a 8 mm trocar and sleeve was advanced through this incision. The laparoscope was then replaced, revealing intra-abdominal placement. Three additional port sites were placed, two to the left side of the patient's abdomen and one to the right. These areas was infused with 0.25% Marcaine. Each one of these areas, incisions were made, and 8 mm trocars and sleeves advanced through each one of these incisions under direct visualization. Next, the da Ruth was then docked, utilizing a camera arm and two operative arms. The patient's abdomen was then surveyed with the above-noted finding. Bilateral salpingectomies were then performed. The fallopian tubes' mesosalpinx was cauterized and ligated with hemostasis noted. Next, the uteroovarian ligaments bilateral were cauterized and ligated with good hemostasis noted. The round ligaments bilaterally were cauterized and ligated with good hemostasis noted. The anterior and posterior aspects of broad ligaments were . The anterior leaf of the broad ligament was cauterized and ligated and dissected along the bladder, creating a bladder flap. The remainder of the broad and cardinal ligaments were then cauterized and ligated with good hemostasis noted. The uterine arteries were skeletonized bilaterally and were cauterized and transected with good hemostasis noted. Anterior and posterior colpotomies were made using monopolar scissors. The uterus was then brought out through the vaginal incision. The surgical sites were inspected and noted to be hemostatic. The vaginal cuff was then closed using 2-0 V-Loc system in a running fashion. Vijaya was then applied over the surgical field. The pneumoperitoneum was then released. Next, the cystoscopy was then performed. Utilizing a 70-degree cystoscope, it was advanced transurethrally through the bladder. The bladder was surveyed, showing normal bladder mucosa, no foreign bodies. The bilateral ureteral jets were observed. The cystoscope was then removed. The bladder was then drained. Gloves were changed. Attention was then turned to the patients abdomen, where all four port sites were closed with 4-0 Monocryl and dressed with Dermabond. The patient was then taken out of lithotomy position and was awakened from general anesthesia and taken to recovery in stable condition. Counts were correct. Lidia Wharton, my assembler surgical garment, played a central role in the operation. She assisted with port placement, tissue retraction and identification, as well as NORMA CANALES MD. Aug 25, 2019 10:58
[2019-08-25] MEDS ORDERED: METOCLOPRAMIDE INJ 10MG/2ML VIAL (J2765 PER 1) As Ordered ONE (11:00)
[2019-08-25] MEDS ORDERED: LACRILUBE (AKWA TEARS) OPHTH OINT 3.5 GM As Ordered ONE (11:03)
[2019-08-25] MEDS ORDERED: ACETAMINOPHEN 1000MG 100ML IV BTL (OFIRMEV) (J0131 PER 10MG) As Ordered ONE (12:04)
[2019-08-25] MEDS ORDERED: HYDROmorphone HCL 2 MG/ML 1ML VIAL (J1170) As Ordered ONE (12:11)
[2019-08-25] MEDS ORDERED: SUGAMMADEX SODIUM 500 MG/5 ML VIAL (BRIDION) As Ordered ONE (12:11)
[2019-08-25] MEDS ORDERED: PROMETHAZINE INJ 25 MG/ML VIAL (J2550) IV PRN (13:30)
[2019-08-25] MEDS ORDERED: PERCOCET 5MG/325MG TAB PO PRN ×2 (13:30)
[2019-08-25] MEDS ORDERED: fentaNYL 100 MCG/2 ML INJECTION (J3010) IV PRN (13:30)
[2019-08-25] MEDS ORDERED: ONDANSETRON 4MG/2ML VIAL IV PRN (13:30)
[2019-08-25] MEDS ORDERED: LR 1,000 ML IV SCH ×2 (13:30)
[2019-08-25] MEDS ORDERED: oxyCODONE 5MG TAB PO PRN (13:30)
[2019-08-25 14:15] VITALS: BP 125/64
[2019-08-25 14:45] VITALS: BP 121/61
[2019-08-25 15:15] VITALS: BP 144/77
[2019-08-25 16:15] VITALS: BP 116/57
[2019-08-25 17:15] VITALS: BP 116/61
== END 2019-08-25 18:10 | disposition home or self-care (01) ==
LOC: M SDC 07:59 → M PED 14:15 → M SDC 18:10
PROVIDERS: ATTEND Obstetrics & Gynecology
DX: N92.0 Excessive and frequent menstruation with regular cycle (principal); N72 Inflammatory disease of cervix uteri; K21.9 Gastro-esophageal reflux disease without esophagitis; K44.9 Diaphragmatic hernia without obstruction or gangrene; Z98.84 Bariatric surgery status; Z79.899 Other long term (current) drug therapy; Z88.0 Allergy status to penicillin; Z88.1 Allergy status to other antibiotic agents; Z88.8 Allergy status to other drugs, medicaments and biological substances; Z88.2 Allergy status to sulfonamides
CPT/HCPCS: 36415; 58571; 86850; 86900; 86901; 88307; J0131; J1100; J1170; J2250; J2405; J2765; J3010; S0073

== ENCOUNTER → 2019-09-12 | Outpatient (CLI) | payer OTHER ==
[~2019-09-12] MED LIST changes: +CYAN500T10 PO; -LR 1,000 ML IV ONE; -UNRESOLVED CLARIFICATION ENTRY XX SCH; -VITA500T37 PO; -metroNIDAZOLE 500 MG in IV 1 EA IV ONE
--- NOTE | 2019-09-12 09:54 | REPMRS ---
Patient History Family history of breast cancer at age 60 in mother, ovarian cancer at age 35 in maternal aunt. 3D TOMOSYNTHESIS WAS PERFORMED. [facility] lifetime risk for breast cancer is 16.8%. VOLPARA DENSITY C. Digital Woman Screen Mammo: September 12, 2019 - Exam #: [id number] Bilateral CC and MLO view(s) were taken. Technologist: Prerna Hammer, Technologist Prior study comparison: April 19, 2018, bilateral digital mammo screening bilat, performed at [facility]. January 11, 2017, bilateral digital mammo screening bilat, performed at [facility]. FINDINGS: The breast tissue is heterogeneously dense. This may lower the sensitivity of mammography. There has been no change in the appearance of the mammogram from the prior studies. There is a moderate amount of residual fibroglandular tissue which is fairly symmetric. There is no interval development of dominant mass, areas of architectural distortion, or clustered microcalcification typical of malignancy. Assessment: BI-RADS/ACR category 1 mammogram. Negative Mammogram. Recommendation Routine screening mammogram in 1 year (for women over age 40). This mammogram was interpreted with the aid of an FDA-approved computer-aided dectection system. Electronically Signed By: Nehemias Hernandez MD 09/12/19 [id number]
== END ==
LOC: M WHC 09:06
PROVIDERS: ATTEND Obstetrics & Gynecology
DX: Z12.31 Encounter for screening mammogram for malignant neoplasm of breast (principal); Z80.3 Family history of malignant neoplasm of breast

== ENCOUNTER → 2020-02-15 | Outpatient (CLI) | payer SELFPAY | LOC: M LABSMTC 10:02 | PROVIDERS: ATTEND Pediatrics | DX: Z20.828 Contact with and (suspected) exposure to other viral communicable diseases (principal) ==

== ENCOUNTER → 2020-09-22 | Outpatient (CLI) | payer OTHER ==
[~2020-09-22] MED LIST changes: -CYAN500T10 PO; +VITA500T37 PO
--- NOTE | 2020-09-22 08:57 | REPMRS ---
Patient History The patient states she has not had a clinical breast exam in over a year. Patient is postmenopausal, has history of ovarian cancer at age 44, and has history of stomach cancer at age 41. Family history of breast cancer at age 60 in mother, ovarian cancer at age 35 in maternal aunt. No Hormone Replacement Therapy Patient states no breast complaints today. Patient has signed MRS History Sheet. Digital Woman Screen Mammo: September 22, 2020 - Exam #: [id number] Bilateral CC and MLO view(s) were taken. Technologist: Lien Dong, Technologist Prior study comparison: September 12, 2019, bilateral digital woman screen mammo performed at [facility]. April 19, 2018, bilateral digital mammo screening bilat, performed at [facility]. January 11, 2017, bilateral digital mammo screening bilat, performed at [facility]. FINDINGS: The breast tissue is heterogeneously dense. This may lower the sensitivity of mammography. The Volpara volumetric breast density category is: C. There is a moderate amount of heterogeneously dense fibroglandular tissue which is fairly symmetric. There is no interval development of dominant mass, architectural distortion, or grouped microcalcification typical of malignancy. There has been no change in the appearance of the mammogram from the prior studies. 3-D tomosynthesis shows no additional findings. Assessment: BI-RADS/ACR category 1 mammogram. Negative Mammogram. Recommendation Breast MRI of both breasts in 6 months. Routine screening mammogram of both breasts in 1 year (for women over age 40). This patient's [facility] Lifetime Breast Cancer RIsk is estimated at 31.4 %. Patients whose estimated lifetime breast cancer risk assessment is greater than 20% merit annual screening breast MRI scanning in addition to annual mammography. This mammogram was interpreted with the aid of an FDA-approved computer-aided dectection system. Electronically Signed By: Jose Gross MD 09/22/20 [id number]
== END ==
LOC: M WHC 08:08
PROVIDERS: ATTEND Obstetrics & Gynecology
DX: Z12.31 Encounter for screening mammogram for malignant neoplasm of breast (principal); Z78.0 Asymptomatic menopausal state; Z85.43 Personal history of malignant neoplasm of ovary; Z85.89 Personal history of malignant neoplasm of other organs and systems; Z80.3 Family history of malignant neoplasm of breast; Z80.41 Family history of malignant neoplasm of ovary

== ENCOUNTER 2021-04-14 09:39 | Emergency (ER) | payer OTHER ==
[~2021-04-14] VITALS: Ht 162.6 cm; Wt 76.6 kg
[~2021-04-14 09:39] MED LIST changes: -KLOR10TA76 PO; +POTA-136 PO
[2021-04-14] MEDS ORDERED: TOPI25TA10 (09:54)
[2021-04-14] MEDS ORDERED: HYDROCORTISONE 1% CREAM 30 GM TOP ONE (11:45)
[2021-04-14] MEDS ORDERED: diphenhydrAMINE 50MG CAP PO ONE (11:45)
[2021-04-14] MEDS ORDERED: predniSONE 20 MG TAB PO ONE (11:45)
[2021-04-14 12:14] LABS: BASO % 0.8 % (0.0-1.0); EOS # 0.1 10^3/uL (0.0-0.5); EOS % 1.9 % (0.0-3.0); HEMATOCRIT 45.8 % (36.0-47.0); HEMOGLOBIN 14.3 g/dl (12.0-15.5); LYMPH # 1.4 10^3/uL (1.5-5.0); LYMPH % 26.8 % (24.0-44.0); MEAN CORPUSCULAR HEMOGLOBIN 28.1 pg (27.0-33.0); MEAN CORPUSCULAR HGB CONC 31.2 g/dl (32.0-36.5); MEAN CORPUSCULAR VOLUME 90.2 fl (80.0-96.0); MONO # 0.4 10^3/uL (0.0-0.8); MONO % 7.5 % (2.0-8.0); NEUTROPHILS # 3.3 10^3/uL (1.5-8.5); NEUTROPHILS % 62.8 % (36.0-66.0); PLATELET COUNT, AUTOMATED 251 10^3/uL (150-450); RED BLOOD COUNT 5.08 10^6/uL (4.00-5.40); WHITE BLOOD COUNT 5.2 10^3/uL (4.0-10.0)
[2021-04-14 12:32] LABS: ERYTHROCYTE SEDIMENTATION RATE 6 mm/hr (0-20)
[2021-04-14 12:49] LABS: C REACTIVE PROTEIN QUANTITATIV 0.3 MG/DL (0.00-0.30); CALCIUM LEVEL 8.8 MG/DL (8.5-10.1); CREATININE FOR GFR 1.22 MG/DL (0.55-1.30)
[2021-04-14] MEDS ORDERED: PRED20TA PO (13:03)
[2021-04-14 13:25] VITALS: BP 131/65
== END 2021-04-14 13:27 | disposition home or self-care (01) ==
LOC: M ED 09:39
DX: L50.9 Urticaria, unspecified (principal); R56.9 Unspecified convulsions; Z88.0 Allergy status to penicillin; Z88.1 Allergy status to other antibiotic agents; Z88.2 Allergy status to sulfonamides; Z88.8 Allergy status to other drugs, medicaments and biological substances
CPT/HCPCS: 36415; 80048; 85025; 85652; 86140; 99283; J7512

== ENCOUNTER 2021-06-17 10:04 | Emergency (ER) | payer OTHER ==
[~2021-06-17] VITALS: Ht 162.6 cm; Wt 75.0 kg
[~2021-06-17 10:04] MED LIST changes: +PRED20TA PO; +TOPI25TA10
[2021-06-17] MEDS ORDERED: BUSP5TA (10:19)
[2021-06-17] MEDS ORDERED: SUMA50TA2 (10:19)
[2021-06-17] MEDS ORDERED: PHEN300C (10:19)
[2021-06-17] MEDS ORDERED: GABA600T4 (10:19)
[2021-06-17 12:07] LABS: BASO % 0.7 % (0.0-1.0); EOS # 0.1 10^3/uL (0.0-0.5); EOS % 2.3 % (0.0-3.0); HEMATOCRIT 40.9 % (36.0-47.0); HEMOGLOBIN 13.1 g/dl (12.0-15.5); LYMPH # 1.6 10^3/uL (1.5-5.0); LYMPH % 27.9 % (24.0-44.0); MEAN CORPUSCULAR HEMOGLOBIN 29.2 pg (27.0-33.0); MEAN CORPUSCULAR VOLUME 91.3 fl (80.0-96.0); MONO # 0.5 10^3/uL (0.0-0.8); MONO % 9.2 % (2.0-8.0); NEUTROPHILS # 3.4 10^3/uL (1.5-8.5); NEUTROPHILS % 59.7 % (36.0-66.0); PLATELET COUNT, AUTOMATED 203 10^3/uL (150-450); RED BLOOD COUNT 4.48 10^6/uL (4.00-5.40); WHITE BLOOD COUNT 5.7 10^3/uL (4.0-10.0)
[2021-06-17] MEDS ORDERED: MACR100C43 PO (12:13)
[2021-06-17 12:17] VITALS: BP 146/80
== END 2021-06-17 12:19 | disposition home or self-care (01) ==
LOC: M ED 10:04
DX: N39.0 Urinary tract infection, site not specified (principal); G40.909 Epilepsy, unspecified, not intractable, without status epilepticus; Q60.3 Renal hypoplasia, unilateral; Z87.440 Personal history of urinary (tract) infections; Z79.899 Other long term (current) drug therapy; Z88.0 Allergy status to penicillin; Z88.1 Allergy status to other antibiotic agents; Z88.2 Allergy status to sulfonamides; Z88.8 Allergy status to other drugs, medicaments and biological substances; Z98.84 Bariatric surgery status

== ENCOUNTER → 2021-08-09 | Outpatient (CLI) | payer OTHER ==
[~2021-08-09] MED LIST changes: +BUSP5TA; +GABA600T4; +PHEN300C; +SUMA50TA2
== END ==
LOC: M RAD 16:31
PROVIDERS: ATTEND Obstetrics & Gynecology
DX: Z53.9 Procedure and treatment not carried out, unspecified reason (principal)

== ENCOUNTER → 2021-08-12 | Outpatient (CLI) | payer OTHER | LOC: M WHC 07:30 | PROVIDERS: ATTEND Obstetrics & Gynecology | DX: R10.2 Pelvic and perineal pain (principal); Z90.710 Acquired absence of both cervix and uterus ==

== ENCOUNTER → 2021-11-20 | Outpatient (REF) | LOC: M LABSMTC 10:51 | PROVIDERS: ATTEND Family Medicine | DX: Z20.822 Contact with and (suspected) exposure to COVID-19 (principal) ==

== ENCOUNTER → 2021-11-28 | Outpatient (CLI) | payer OTHER ==
[2021-11-28 16:48] LABS: BASO # 0.1 10^3/uL (0.0-0.2); BASO % 0.9 % (0.0-1.0); EOS # 0.2 10^3/uL (0.0-0.5); EOS % 2.7 % (0.0-3.0); HEMATOCRIT 43.8 % (36.0-47.0); LYMPH # 1.8 10^3/uL (1.5-5.0); LYMPH % 32.1 % (24.0-44.0); MEAN CORPUSCULAR HEMOGLOBIN 29.4 pg (27.0-33.0); MEAN CORPUSCULAR VOLUME 91.8 fl (80.0-96.0); MONO # 0.5 10^3/uL (0.0-0.8); MONO % 8.1 % (2.0-8.0); NEUTROPHILS # 3.1 10^3/uL (1.5-8.5); PLATELET COUNT, AUTOMATED 216 10^3/uL (150-450); RED BLOOD COUNT 4.77 10^6/uL (4.00-5.40); WHITE BLOOD COUNT 5.5 10^3/uL (4.0-10.0)
[2021-11-28 17:21] LABS: INR 1.09; PROTHROMBIN TIME 14.5 SECONDS (12.7-14.5)
[2021-11-28 17:22] LABS: PARTIAL THROMBOPLASTIN TIME 29.9 SECONDS (25.9-37.0)
[2021-11-28 17:34] LABS: ALBUMIN 3.4 GM/DL (3.2-5.2); BILIRUBIN,TOTAL 0.6 MG/DL (0.2-1.0); C REACTIVE PROTEIN QUANTITATIV 0.3 MG/DL (0.00-0.30); CALCIUM LEVEL 8.7 MG/DL (8.5-10.1); CREATININE FOR GFR 1.33 MG/DL (0.55-1.30); GLOMERULAR FILTRATION RATE 45.9 (>58); PHENYTOIN (DILANTIN) 0.5 UG/ML (10.0-20.0); POTASSIUM SERUM 3.9 MEQ/L (3.5-5.1); TOTAL PROTEIN 6.6 GM/DL (6.4-8.2)
[2021-11-28 17:38] LABS: ERYTHROCYTE SEDIMENTATION RATE 8 mm/hr (0-20)
[2021-11-29 12:00] LABS: PERCENT SATURATION 25.1 % (13.2-45.0)
== END ==
LOC: M LAB 15:55
PROVIDERS: ATTEND Physician Assistant
DX: R23.3 Spontaneous ecchymoses (principal); R10.12 Left upper quadrant pain; R51.9 Headache, unspecified

== ENCOUNTER → 2021-12-22 | Outpatient (CLI) | payer OTHER | LOC: M PLAIMG 13:57 | PROVIDERS: ATTEND Family Medicine | DX: M77.32 Calcaneal spur, left foot (principal); M79.672 Pain in left foot ==

== ENCOUNTER → 2022-01-04 | Outpatient (CLI) | payer OTHER | LOC: M WHC 13:08 | PROVIDERS: ATTEND Obstetrics & Gynecology | DX: Z12.31 Encounter for screening mammogram for malignant neoplasm of breast (principal) ==

== ENCOUNTER → 2023-01-22 | Outpatient (CLI) | payer OTHER | LOC: M WHC 10:31 | PROVIDERS: ATTEND Internal Medicine Hematology & Oncology | DX: Z12.31 Encounter for screening mammogram for malignant neoplasm of breast (principal) ==